=== PATIENT | female | born 1990 | race Caucasian/White ===

== ENCOUNTER → 2017-06-13 | Outpatient (CLI) | payer OTHER ==
--- NOTE | 2017-06-13 16:17 | DIAGNOSTIC IMAGING REPORT ---
L FOOT MIN 3 VIEWS, R FOOT MIN 3 VIEWS CLINICAL HISTORY: 26 years-old Female presenting with B/L FEET PAIN. TECHNIQUE: Frontal, oblique, and lateral views of the right and left feet were obtained. COMPARISON: None. FINDINGS: Right foot: No acute fracture or malalignment. No degenerative change. No radiographic soft tissue abnormality. Left foot: No acute fracture or malalignment. No degenerative change. No radiographic soft tissue abnormality. IMPRESSION: 1. No acute osseous injury of the right foot. 2. No acute osseous injury of the left foot. Electronically signed by: Yoav Palma M.D. 06/13/2017 4:15 PM Dictated Date/Time: 06/13/2017 4:14 PM
== END | disposition home or self-care (01) ==
LOC: C.RDSM 09:58
PROVIDERS: ATTEND Internal Medicine
DX: M79.671 Pain in right foot (principal); M79.672 Pain in left foot

== ENCOUNTER → 2017-06-21 | Outpatient (CLI) | payer OTHER ==
--- NOTE | 2017-06-21 19:22 | DIAGNOSTIC IMAGING REPORT ---
RIGHT FOREFOOT MRI HISTORY: R FOOT PAIN TECHNIQUE: Multiplanar multisequence MRI of the right forefoot was performed without the use of intravenous contrast. COMPARISON STUDY: Right foot 06/13/2017. FINDINGS: There is a skin marker at the plantar surface of the first MTP joint. There is a bipartite medial sesamoid bone. There is mild edema both within and surrounding the medial sesamoid bone at the head of the first metatarsal. This is also decreased T1 signal within this sesamoid bone. No acute fracture or dislocation identified within the forefoot. The visualized tendons and ligaments are intact. IMPRESSION: Above findings are consistent with a mild sesamoiditis of the medial sesamoid bone at the first MTP joint. Electronically signed by: Donavan Zelaya M.D. 06/21/2017 7:21 PM Dictated Date/Time: 06/21/2017 7:14 PM
== END | disposition home or self-care (01) ==
LOC: C.MRI 18:31
PROVIDERS: ATTEND Internal Medicine
DX: M79.671 Pain in right foot (principal)